=== PATIENT | female | born 1965 | race Caucasian/White ===

== ENCOUNTER 2021-05-09 13:45 | Emergency (ER) | payer MEDICAID ==
[~2021-05-09] VITALS: Ht 157.5 cm; Wt 66.0 kg
[2021-05-09] MEDS ORDERED: ACETAMINOPHEN 325MG TABLET PO ONE (15:00)
[2021-05-09] MEDS ORDERED: IBUPROFEN 400MG TABLET PO ONE (15:00)
[2021-05-09] MEDS ORDERED: TOPUD MT (16:45)
[2021-05-09] MEDS ORDERED: IBUP-2028 MT (17:28)
[2021-05-09 17:38] VITALS: BP 145/60
== END 2021-05-09 17:39 | disposition home or self-care (01) ==
LOC: ER 13:45
DX: M79.672 Pain in left foot (principal); E11.9 Type 2 diabetes mellitus without complications; E78.00 Pure hypercholesterolemia, unspecified; I10 Essential (primary) hypertension
CPT/HCPCS: 73630; 99283